=== PATIENT | male | born 1990 | race Asian ===

== ENCOUNTER 2021-02-05 11:18 | Emergency (ER) | payer OTHER ==
[~2021-02-05] VITALS: Ht 170.2 cm; Wt 69.6 kg
[2021-02-05] MEDS ORDERED: ASPIRIN 81 MG CHEW TABLET PO ONE (12:10)
[2021-02-05] MEDS ORDERED: METOCLOPRAMIDE INJ 10MG/2ML VIAL (J2765 PER 1) IV ONE (12:10)
[2021-02-05] MEDS ORDERED: NS 1,000 ML IV ONE (12:10)
[2021-02-05 12:20] LABS: BASO % 0.7 % (0.0-1.0); EOS # 0.2 10^3/uL (0.0-0.5); EOS % 3.1 % (0.0-3.0); HEMATOCRIT 46.8 % (42.0-52.0); HEMOGLOBIN 15.4 g/dl (13.5-17.5); LYMPH # 1.3 10^3/uL (1.5-5.0); LYMPH % 24.5 % (24.0-44.0); MEAN CORPUSCULAR HEMOGLOBIN 31.6 pg (27.0-33.0); MEAN CORPUSCULAR HGB CONC 32.9 g/dl (32.0-36.5); MEAN CORPUSCULAR VOLUME 95.9 fl (80.0-96.0); MONO # 0.3 10^3/uL (0.0-0.8); NEUTROPHILS # 3.6 10^3/uL (1.5-8.5); NEUTROPHILS % 65.5 % (36.0-66.0); PLATELET COUNT, AUTOMATED 205 10^3/uL (150-450); RED BLOOD COUNT 4.88 10^6/uL (4.30-6.10); WHITE BLOOD COUNT 5.5 10^3/uL (4.0-10.0)
[2021-02-05 12:28] LABS: ALBUMIN 4.2 GM/DL (3.2-5.2); ALT/SGPT 68 U/L (12-78); BILIRUBIN,DIRECT 0.1 MG/DL (0.0-0.2); BILIRUBIN,TOTAL 0.4 MG/DL (0.2-1.0); BLOOD UREA NITROGEN 13 MG/DL (7-18); CALCIUM LEVEL 8.8 MG/DL (8.5-10.1); CARBON DIOXIDE LEVEL 30 MEQ/L (21-32); CHLORIDE LEVEL 102 MEQ/L (98-107); CREATININE FOR GFR 0.81 MG/DL (0.70-1.30); GLOMERULAR FILTRATION RATE > 60.0 (>60); GLUCOSE, FASTING 152 MG/DL (70-100); LIPASE 124 U/L (73-393); POTASSIUM SERUM 3.8 MEQ/L (3.5-5.1); SODIUM LEVEL 139 MEQ/L (136-145)
[2021-02-05 12:57] LABS: ETHYL ALCOHOL (ETHANOL) < 0.003 % (0.000-0.010)
--- NOTE | 2021-02-05 12:58 | REP ---
INDICATION: CHEST PAIN. COMPARISON: Comparison chest x-ray April 10, 2016. TECHNIQUE: Portable upright AP chest radiograph. FINDINGS: The lungs are well inflated and free of infiltrate. Pleural angles are sharp. Heart size is normal. Pulmonary vasculature is not increased. Today's views exposed at a somewhat lesser level of inspiration. IMPRESSION: No active disease. <Electronically signed by Dino Blake > 02/05/21 [id number]
[2021-02-05 13:14] LABS: INR 0.93; PROTHROMBIN TIME 12.6 SECONDS (12.5-14.3)
[2021-02-05 13:15] VITALS: BP 141/76
--- NOTE | 2021-02-06 19:48 | ECGEPIP ---
[facility] - ED Test Date: 2021-02-05 Pat Name: NO REID Department: Room: - Gender: Male [employer]: SOFY : 1990 Requested By: John Paul Nieves Order Number: [id number] Reading MD: Pamela Hoyt Measurements Intervals [place] Rate: 104 P: -8 MN: 132 QRS: -4 QRSD: 90 T: 1 QT: 322 QTc: 423 Interpretive Statements Sinus tachycardia Minimal voltage criteria for LVH, may be normal variant ( R in aVL ) NSTTW abnormalities No prior Electronically Signed on 02-06-2021 19:48:23 EDT by Pamela Hoyt
== END 2021-02-05 13:34 | disposition home or self-care (01) ==
LOC: M ED 11:18
DX: F10.10 Alcohol abuse, uncomplicated (principal); R00.0 Tachycardia, unspecified
CPT/HCPCS: 71045; 80047; 80048; 80076; 82077; 83690; 85025; 85610; 93005; 93041; 94760; 96361; 96374; 99285; J2765